=== PATIENT | female | born 1955 | race Caucasian/White ===

== ENCOUNTER → 2016-04-29 | Outpatient (CLI) | payer OTHER ==
--- NOTE | 2016-04-29 16:18 | MA ---
Screening Digital Mammogram With iCAD Analysis Reason for Examination: Routine screening. Her mother was diagnosed with breast cancer in her 70s. Breast parenchymal density: Type C; Heterogeneously dense. Technique: Four views of each breast are obtained including CC and oblique lateral Josiane (implant di splaced) and non-Josiane (implant not displaced) views. Images were reviewed using the iCAD computer a ided detection system. Comparison: March 2015, February 2014, February 2013, January 2012, January 2011, September 2009. Findings: Breast implants are in place bilaterally. iCAD is reviewed.No suspicious areas are identifi ed. There has been no significant change in the appearance of either breast. Breast implants diminish the sensitivity of mammography. Impression: Negative mammogram. BI-RADS 1. Recommendation: Routine screening is recommended in one year as long as physical examination is negat cayla. [facility] will send a result letter to the patient. Negative mammography should not preclude additional workup of a clinically suspicious finding. The patient's information is entered into a reminder system with a target due date for her next mammo gram.
== END ==
LOC: BMCIMAGING 14:56
DX: Z12.31 Encounter for screening mammogram for malignant neoplasm of breast (principal); Z80.3 Family history of malignant neoplasm of breast
CPT/HCPCS: G0202

== ENCOUNTER → 2016-06-04 | Outpatient (CLI) | payer OTHER | LOC: FIMAGING 10:11 | PROVIDERS: ATTEND Midwife | DX: Z13.820 Encounter for screening for osteoporosis (principal); Z85.3 Personal history of malignant neoplasm of breast; Z78.0 Asymptomatic menopausal state; E11.9 Type 2 diabetes mellitus without complications; E07.9 Disorder of thyroid, unspecified ==

== ENCOUNTER → 2017-05-26 | Outpatient (CLI) | payer OTHER | LOC: BMCIMAGING 15:12 | PROVIDERS: ATTEND Internal Medicine Endocrinology, Diabetes & Metabolism | DX: Z12.31 Encounter for screening mammogram for malignant neoplasm of breast (principal); Z80.3 Family history of malignant neoplasm of breast ==

== ENCOUNTER → 2018-06-02 | Outpatient (CLI) | payer OTHER | LOC: BMCIMAGING 14:14 | PROVIDERS: ATTEND Midwife | DX: Z12.31 Encounter for screening mammogram for malignant neoplasm of breast (principal); Z80.3 Family history of malignant neoplasm of breast ==